=== PATIENT | male | born 1955 | race Two or more races ===

== ENCOUNTER 2019-03-25 07:20 | Day surgery (SDC) | payer MEDICARE, BC ==
[~2019-03-25] VITALS: Ht 167.6 cm; Wt 95.3 kg
[2019-03-25] VITALS (9 sets, daily range): BP systolic 129–153; BP diastolic 75–88
[~2019-03-25 07:20] MED LIST: METFORMIN HCL1000 M1 ORAL; SIMVASTATIN10 MG ORAL
[2019-03-25] MEDS ORDERED: LR 1000ml 1,000 ML IVLG SCH ×2 (08:00→08:44)
[2019-03-25] MEDS ORDERED: CARDURA4 MG ORAL (08:20)
[2019-03-25] MEDS ORDERED: KLONOPIN0.5 MG ORAL (08:20)
[2019-03-25] MEDS ORDERED: GLIPIZIDE5 MG ORAL (08:20)
[2019-03-25] MEDS ORDERED: LISINOPRIL10 MG ORAL (08:20)
[2019-03-25] MEDS ORDERED: SERTRALINE HCL100 MG PO (08:20)
[2019-03-25] MEDS ORDERED: LR 1000ml ONE (08:30)
[2019-03-25] MEDS ORDERED: Lidocaine 1% MPF 10mg/ml 5ml ONE (08:30)
[2019-03-25] MEDS ORDERED: Propofol 200mg/20ml IV ONE (08:30)
[2019-03-25] MEDS ORDERED: DiphenhydrAMINE 50mg/ml Inj IVP PRN (08:45)
[2019-03-25] MEDS ORDERED: Atropine Inj 1mg/10ml Syr IV PRN (08:45)
[2019-03-25] MEDS ORDERED: fentaNYL 100 mcg/2 mL IV PRN (08:45)
[2019-03-25] MEDS ORDERED: Midazolam 2mg/2ml Inj IVP PRN (08:45)
--- NOTE | 2019-03-25 08:50 | Anethesia Preoperative Eval ---
Anesthesia Pre-op PMH/ROS General Date of Evaluation: Mar 25, 2019 Time of Evaluation: 08:46 Anesthesiologist: nuzhat ASA Score: ASA 3 Mallampati Score Class I : Soft palate, uvula, fauces, pillars visible Class II: Soft palate, uvula, fauces visible Class III: Soft palate, base of uvula visible Class IV: Only hard plate visible Mallampati Classification: Class II Surgeon: dashawn Diagnosis: gerd, colon screening Surgical Procedure: egd, colonoscopy Anesthesia History: none Social History: smoking - former smoker, alcohol use Family History: no anesthesia problems Allergies: Coded Allergies: PENICILLINS (Verified Allergy, Unknown, 03/25/19) Medications: see eMAR Patient NPO?: Yes Past Medical History Cardiovascular: Reports: HTN, other - cholesterolemia Gastrointestinal/Genitourinary: Reports: GERD, other - hemorrhoids Neurologic/Psychiatric: Reports: depression/anxiety Endocrine: Reports: DM Musculoskeletal/Integumentary: Reports: other - right knee sx PSxH Narrative: right knee sx, colonoscopy, prostate sx Anesthesia Pre-op Phys. Exam Physician Exam Last Vital Signs Date Time Temp Pulse Resp B/P (MAP) Pulse Ox O2 Delivery O2 Flow Rate FiO2 03/25/19 08:21 Room Air 03/25/19 08:10 97.0 71 16 153/87 95 Constitutional: NAD Neurologic: CN 2-12 intact Cardiovascular: RRR Respiratory: CTA Gastrointestinal: S/NT/ND Airway Exam Mallampati Score: Class II MO: limited Neck: flexible TMD: 2fb ROM: limited Anesthesia Pre-op A/P Risk Assessment & Plan Assessment: asa3 Plan: mac Status Change Before Surgery: No Pre-Antibiotics Drug: Mercedes Bangura MD Mar 25, 2019 08:49
--- NOTE | 2019-03-25 08:52 | Short Stay Surgery H&P ---
History of Present Illness History of Present Illness Chief Complaint see recent office note HPI Gertrudis Angulo is a 63 year old male who was admitted on for Screening And Gerd Patient History Allergies: Coded Allergies: PENICILLINS (Verified Allergy, Unknown, 03/25/19) Medication History Scheduled Clonazepam* (Klonopin*), 0.5 MG ORAL Q6H, (Reported) Doxazosin Mesylate* (Cardura*), 8 MG ORAL DAILY, (Reported) Glipizide* (Glipizide*), 2.5 MG ORAL BIDAC, (Reported) Lisinopril* (Lisinopril*), 10 MG ORAL DAILY, (Reported) Metformin Hcl* (Metformin Hcl*), 1,000 MG ORAL BID, (Reported) Sertraline Hcl* (Zoloft*), 100 MG PO DAILY, (Reported) Simvastatin (Zocor), 40 MG ORAL BEDTIME, (Reported) Physical Exam Vital Signs Last Vital Signs Date Time Temp Pulse Resp B/P (MAP) Pulse Ox O2 Delivery O2 Flow Rate FiO2 03/25/19 08:21 Room Air 03/25/19 08:10 97.0 71 16 153/87 95 Plan Attestation Are the patient's medical conditions optimized for surgery? Dale Chilel MD Mar 25, 2019 08:52
--- NOTE | 2019-03-25 08:52 | Pre-Procedure Note/Attestation ---
Pre-Procedure Note/Attestation Complete Prior to Procedure Planned Procedure: not applicable Procedure Narrative: esophagogastroduodenoscopy and colonoscopy Indications for Procedure Pre-Operative Diagnosis: screening colon, GERD Attestation I attest that I discussed the nature of the procedure; its benefits; risks and complications; and alternatives (and the risks and benefits of such alternatives ), prior to the procedure, with the patient (or the patient's legal car sales representative). I attest that, if there was a reasonable possibility of needing a blood transfusion, the patient (or the patient's legal car sales representative) was given the [facility] standardized written summary, pursuant to the [place] Blood Safety Act ([place] Health and Safety Code # 1645, as amended). I attest that I re-evaluated the patient just prior to the surgery and that there has been no change in the patient's H&P, except as documented below: Dale Chilel MD Mar 25, 2019 08:52
--- NOTE | 2019-03-25 09:23 | Endoscopy Procedure Note ---
Endoscopy Procedure Note General Indication for Procedure: screening colon, GERD Procedures Performed: EGD, colonoscopy Operative Findings/Diagnosis: 2 polyps Specimen: yes Pt Tolerated Procedure Well: Yes Estimated Blood Loss: none Anesthesia Anesthesiologist: stevan cabrera Anesthesia: MAC Inserted Devices Implant(s) used?: No Quality Quality of Bowel Preparation: Fair Did scope reach the cecum?: Yes Was there any complications?: No GI Core Measures 50 yrs or older w/o bx or poly: No 10yrs. F/U recommended: Yes If not recommended, why?: Above average risk 18 years or older w/prev. colo: Yes <3yrs. since last colonoscopy: No Dale Chilel MD Mar 25, 2019 09:23
--- NOTE | 2019-03-25 10:32 | Immediate Post-Op Evaluation ---
Immediate Post-Op Evalulation Immediate Post-Op Evalulation Procedure: egd/colonoscopy w/bx Date of Evaluation: Mar 25, 2019 Time of Evaluation: 09:42 IV Fluids: 400ml lr Blood Products: none Estimated Blood Loss: negligible Blood Pressure Systolic: 131 Blood Pressure Diastolic: 75 Pulse Rate: 65 Respiratory Rate: 18 O2 Sat by Pulse Oximetry: 96 Temperature (Fahrenheit): 97.4 Pain Score (1-10): 0 Nausea: No Vomiting: No Complications none Patient Status: awake, reacts, patent Hydration Status: adequate Drug: Mercedes Bangura MD Mar 25, 2019 10:32
--- NOTE | 2019-03-25 10:33 | 48 Hour Post Anesthesia Eval ---
Post Anesthesia Evaluation Procedure: egd/colonoscopy w/bx Date of Evaluation: Mar 25, 2019 Time of Evaluation: 09:44 Blood Pressure Systolic: 132 0: 88 Pulse Rate: 67 Respiratory Rate: 18 Temperature (Fahrenheit): 97.4 O2 Sat by Pulse Oximetry: 96 Airway: patent Nausea: No Vomiting: No Pain Intensity: 0 Hydration Status: adequate Cardiopulmonary Status: stable Mental Status/LOC: patient returned to baseline Post-Anesthesia Complications: none Follow-up care needed: N/A Mercedes Smallwood MD Mar 25, 2019 10:33
--- NOTE | 2019-03-25 15:45 | Procedure Note ---
DATE OF PROCEDURE: 03/25/2019 SURGEON: Dale Chilel M.D. PROCEDURE: Upper endoscopy with biopsy, colonoscopy with biopsy. ANESTHESIA: Per Dr. Ramos. INSTRUMENT: Olympus adult flexible upper endoscope and colonoscope. INDICATIONS: Screening colonoscopy evaluation, chronic GERD. REASON FOR PROCEDURE: The procedure, risks, benefits, and possible consequences, including hemorrhage, aspiration, perforation and infection, and alternative treatments, were explained to the patient/legal guardian by Dr. Dale Chilel and the patient/legal guardian understood and accepted these risks. DESCRIPTION OF PROCEDURE: After informed consent was obtained and the patient was adequately sedated, Olympus upper endoscope was advanced from mouth into the second portion of the duodenum and retroflexion was performed in the stomach. The patient had evidence of 4 cm hiatal hernia without any associated esophagitis. In the stomach, there was evidence of diffuse gastritis. Random biopsy from antrum and body was obtained to rule out H. pylori infection. At this time, the upper endoscope was retrieved. The patient was turned over for colonoscopy. First, rectal exam was performed, which was positive for internal hemorrhoids. Then the scope was advanced from the rectum into the cecum documented by appendix orifice. Quality of prep overall was good except for the cecum, which we could not examine the cecum properly given there was some stool in the cecum. The patient has evidence of two polyps, one in the transverse, one in the descending colon roughly measured about 4 mm, both removed with cold biopsy forceps technique. No further polyp was seen. The patient had scattered diverticulosis, more mainly in the left colon. Retroflexion of the rectum was performed, which showed evidence of medium-sized nonbleeding internal hemorrhoids. SUMMARY OF FINDINGS: 1. A 4 cm hiatal hernia. 2. Gastritis, status post biopsy. 3. Two colonic polyps removed. See above for details. 4. Diverticulosis. 5. Internal hemorrhoids. RECOMMENDATIONS: 1. Follow up biopsy results and treat accordingly. 2. Recommend repeat colonoscopy in 5 years. Dale Chilel M.D. DR: FRANSISCO JOB#: [id number] CC:
== END 2019-03-25 10:30 | disposition home or self-care (01) ==
LOC: GAS 07:20
DX: Z12.11 Encounter for screening for malignant neoplasm of colon (principal); K21.9 Gastro-esophageal reflux disease without esophagitis; K44.9 Diaphragmatic hernia without obstruction or gangrene; K57.90 Diverticulosis of intestine, part unspecified, without perforation or abscess without bleeding; K64.8 Other hemorrhoids; K29.50 Unspecified chronic gastritis without bleeding; D12.4 Benign neoplasm of descending colon; D12.3 Benign neoplasm of transverse colon
CPT/HCPCS: 43239; 45380; 82962; 93005; J2704; J7120; 94003; 94150

== ENCOUNTER 2019-04-08 14:24 | Outpatient (CLI) | payer MEDICARE, BC ==
[~2019-04-08 14:24] MED LIST changes: +CARDURA4 MG ORAL; +GLIPIZIDE5 MG ORAL; +KLONOPIN0.5 MG ORAL; +LISINOPRIL10 MG ORAL; +SERTRALINE HCL100 MG PO
--- NOTE | 2019-04-08 14:39 | General Progress Note ---
Assessment/Plan Assessment/Plan: SUMMARY OF FINDINGS: 1. A 4 cm hiatal hernia. 2. Gastritis, status post biopsy. 3. Two colonic polyps removed. See above for details. 4. Diverticulosis. 5. Internal hemorrhoids. repeat colonoscopy in 5 years on chronic ppi, recommend B 12 and mag check annually Subjective ROS Limited/Unobtainable: Yes Allergies: Coded Allergies: PENICILLINS (Verified Allergy, Unknown, 03/25/19) Objective General Appearance: alert EENT: normal ENT inspection Neck: supple Cardiovascular: normal rate Respiratory/Chest: decreased breath sounds Abdomen: normal bowel sounds, non tender, soft Extremities: non-tender Dale Chilel MD Apr 08, 2019 14:39
== END 2019-04-08 16:24 | disposition home or self-care (01) ==
LOC: PAN 14:24
DX: K44.9 Diaphragmatic hernia without obstruction or gangrene (principal); K29.70 Gastritis, unspecified, without bleeding; K63.5 Polyp of colon; K57.90 Diverticulosis of intestine, part unspecified, without perforation or abscess without bleeding; K64.8 Other hemorrhoids; Z88.0 Allergy status to penicillin
CPT/HCPCS: 99212